=== PATIENT | male | born 2000 | race Caucasian/White ===

== ENCOUNTER 2024-10-10 18:07 | Emergency (ER) | payer OTHER, SELFPAY ==
[2024-10-10 18:14] VITALS: BP 150/74; PULSE 94; RESP 18; TEMP 37; O2SAT 98; BMI 41.6
--- NOTE | 2024-10-10 18:20 | ED_ITS ---
HPI - General Adult General Chief complaint: Skin/Abscess/Foreign Body Stated complaint: rash on arms and feet; swollen feet Time Seen by Provider: 10/10/24 22:58 Source: patient Mode of arrival: ambulatory Limitations: no limitations History of Present Illness ED Provider: Dr. Alondra Moreno HPI narrative: 24-year-old male with no significant past medical history presenting with continued rash on his lower extremities that is now spread to his upper extremities and abdomen that has been ongoing for over a month. Patient was seen at another emergency department about a month ago for the same reason. States that he was given a cream of medication that helped the rash someone but reports that it is only getting worse. Admits that the rash is very itchy and he has even had some open excoriated areas because of it. No reported fever. Rash is not painful. No upper respiratory symptoms. Denies associated chest pain or difficulty breathing. No abdominal pain or vomiting. Has been otherwise healthy. He is sexually active with a single female partner and has never had a diagnosis of STDs. Reports that he was checked for syphilis during his last emergency department visit. He has not seen a furniture sales consultant about this. He does not have a primary care doctor. Related Data Previous Rx's ?Medication ?Instructions ?Recorded cetirizine 10 mg capsule (Zyrtec) 10 mg PO DAILY PRN i tching #60 caps 10/11/24 prednisone 10 mg tablets in a dose 10 mg PO DIRECTE D #48 ea 10/11/24 pack Allergies Allergy/AdvReac Type Severity Reaction Status Date / Time No Known Allergies Allergy Verified 10/10/24 18:15 Review of Systems 2 Review of Systems: as per HPI, full review of systems performed and negative but for the above mentioned pertinent positives and negatives. [facility] Social History Social History Advance Directives: No Advance Directives Information Provided: No Physical Exam ED Exam Exam: GENERAL: Well-Appearing, conversant, no acute distress. SKIN: Normal skin color for ethnicity, warm, dry, diffuse, maculopapular red, almost purpuric rash that is raised in areas in a plaque-like configuration with confluence in some areas spanning from the feet including the soles, to the abdomen also including the arms but spares the palms, see pictures below. HEENT:? Normocephalic, atraumatic, no stridor, posterior oropharynx nonerythematous, dentition intact, EOMI. NECK: Soft, supple, full ROM, midline structures nontender, no step-offs, no deformities, no lymphadenopathy. CHEST: Heart regular rate and rhythm, no murmurs, symmetric chest rise and fall. PULMONARY: Clear to auscultation bilaterally, no labored breathing, no wheezes/rhales/rhonchi. ABDOMINAL: Soft, nondistended, nontender, positive bowel sounds in all quadrants. : Deferred. MUSCULOSKELETAL: Normal tone, full range of motion, no deformities, no peripheral edema. NEURO: Alert and oriented x3, CN II through XII intact, equal strength and sensation bilateral upper and lower extremities, no focal neurologic deficits.? PSYCHIATRIC: Normal affect, fluid speech, good eye contact and appropriate demeanor. Vital Signs: Vital Signs - 24 hr 10/10/24 18:14 10/10/24 23:21 Temperature 98.6 F 98.5 F Pulse Rate 94 65 Respiratory Rate 18 16 Blood Pressure 150/74 H 116/63 Pulse Oximetry 98 96 Oxygen Delivery Method Room Air Room Air BMI result Body Mass Index 41.6 Skin Other: Course Course Course Narrative: This is a Rapid Medical Examination (RME) performed by Michael Fortune PA-C in triage. Full HPI, ROS, assessment and treatment plan per primary provider in the Main ED. Hx: 24 yo M here for eval of diffuse body rash. seen at [facility] prior, diagnosed w/ bacterial skin infection . prescribed abx and cream. seemed to go away, has now returned. rash to b/l UE, LEs, soles, trunk. states he is sexually active with female partners. he does not recall if he was tested for STIs at [facility]. Plan: labs, UA, CTNG, syphillis testing Medications Administered Discontinued Medications Generic Name Dose Route Start Last Admin Trade Name Freq PRN Reason Stop Dose Admin Loratadine 10 mg 10/11/24 00:57 10/11/24 01:18 Loratadine 10 Mg Tablet PO 10/11/24 00:58 10 mg ONCE ONE Administration Prednisone 60 mg 10/11/24 00:52 10/11/24 01:18 Prednisone 20 Mg Tablet PO 10/11/24 00:53 60 mg ONCE ONE Administration Medical Decision Making Medical Decision Making [facility] Narrative: Patient presents today with chief complaint of rash. Differential diagnosis is broad. I considered diagnoses including all rashes that might represent some type of emergent pathology. The patient specifically does not have evidence of vesicles, blistering, petechiae or purpura, involvement of the palms, soles or mucous membranes. There has not been any introduction of new medications. Vital signs are normal. Systemically very well- appearing. Rash consistent with potential vasculitis. I discussed the importance of follow-up with Dermatology to have a biopsy to diagnose this definitively. The patient is very poor to follow-up and I was actually the doctor that saw him at the other emergency department and prescribed him hydrocortisone cream for the rash. At that time he also had an overlying cellulitis and 1 of his feet which has since resolved after a course of antibiotics. He has no overlying cellulitic changes today. He does have multiple areas of excoriation and an ulcer on his foot that is not currently infected. I am going to treat him with oral steroids and provide him with a furniture sales consultant to follow up with. Using shared decision making, plan for discharge home to follow-up with primary care and/or specialist. Patient understands and agrees with plan for discharge. Discharged home in stable condition. Differential Diagnosis Differential Diagnoses: The differential diagnosis associated with the presentation includes (as above) Admission/Observation Consideration of admission/observation: Escalation of care including admission/observation considered Lab Data [facility] Lab Attestation statement: I reviewed the patient's lab results. 10/10/24 18:56 10/10/24 18:56 Labs: Lab Results 10/10/24 Range/Units 18:56 WBC 10.4 (4.8-10.8) X10*3/uL RBC 4.82 (4.60-5.80) X10*6/uL Hgb 14.3 (14.0-18.0) g/dl Hct 41.7 L (42.0-52.0) % MCV 86.5 (80.0-98.0) fL MCH 29.7 (27.0-33.0) pg MCHC 34.3 (31.0-36.0) g/dl RDW 12.2 (11.0-16.0) % Plt Count 313 (160-400) X10*3/uL MPV 11.2 (9.4-12.4) fL Immature Gran % (Auto) 0.3 (0.0-0.4) % Neut % (Auto) 54.0 (45-73) % Lymph % (Auto) 33.3 (20-40) % Menard % (Auto) 7.1 (2-11) % Eos % (Auto) 4.4 H (0-4) % Baso % (Auto) 0.9 (0-2) % Lymph # (Auto) 3.5 (1.2-4.9) X10*3/uL Menard # (Auto) 0.7 (0.1-1.2) X10*3/uL Eos # (Auto) 0.5 H (0.0-0.4) X10*3/uL Baso # (Auto) 0.1 (0.0-0.2) X10*3/uL Abs Immat Gran (auto) 0.03 (0.00-0.03) X10*3/uL Absolute Neuts (auto) 5.6 (2.0-8.3) x10*3/uL Absolute Nucleated RBC 0.000 (0.0-0.012) X10*3/uL Nucleated RBC % (auto) 0.0 (0.0-0.2) /100WBC ESR 14 (0-15) MM/HR Sodium 141 (135-145) mmol/L Potassium 3.6 (3.3-5.1) mmol/L Chloride 107 (96-108) mmol/L Carbon Dioxide 26 (22-29) mmol/L Anion Gap 12 (12-20) BUN 13 (9-16) mg/dL Creatinine 1.10 (0.5-1.4) mg/dL Estim Creat Clear Calc 130.4 Estimated GFR > 60 Random Glucose 94 (60-115) mg/dL Calcium 9.3 (8.4-10.2) mg/dL Magnesium 1.9 (1.6-2.6) mg/dL Total Bilirubin 0.4 (0.0-1.0) mg/dL AST 32 (5-37) U/L ALT 35 (0-40) U/L Alkaline Phosphatase 80 (39-117) U/L C-Reactive Protein 0.59 H (< or = 0.50) mg/dL Total Protein 8.1 H (6.5-8.0) g/dL Albumin 4.8 (3.5-5.0) g/dL Ur N gonorrhoeae DNA (PCR) NOT DETECTED (Not Detect.) T.pallidum Ab (EIA) Nonreactive (Nonreactive) Ur Chlamydia DNA (PCR) NOT DETECTED (Not Detect.) Independent Historian Clinical information obtained from an independent historian. History obtained from or confirmed by: Spouse External Record Review External record reviewed: Outside ED record Prescription Management I considered prescription management with: Other (steriods) Discharge Plan Discharge Clinical Impression: Vasculitis limited to skin Patient Disposition: Home, Self-Care Instructions: Acute Rash (ED), Purpura (ED) Additional Instructions: Take your prednisone (steroids) every day until the Dosepak is completed. Follow-up with the furniture sales consultant as soon as possible to get a definitive diagnosis regarding this rash. If you notice any redness that tracks away from your skin, or if you develop a fever, you should return to the emergency department immediately. Prescriptions: New prednisone 10 mg tablets,dose pack 10 mg PO DIRECTED Qty: 48 0RF Rx Instructions: see taper instructions Zyrtec 10 mg capsule 10 mg PO DAILY PRN (Reason: itching) Qty: 60 0RF Referrals: [facility] [Outside] Clinical Impression: Vasculitis limited to skin Interventions: ED Discharge Assessment Last Done: 10/11/24 01:24 Discharge Date/Time: 10/11/24 01:24 Print Language: Tamazight
[2024-10-10 19:01] LABS: MANUAL DIFF FLAG NO
[2024-10-10 19:03] LABS: Hematocrit 41.7 % (42.0-52.0); Hemoglobin 14.3 g/dl (14.0-18.0); Imm Gran Abs Auto 0.03 X10*3/uL (0.00-0.03); Imm Gran Pct Auto 0.3 % (0.0-0.4); Lymphocytes Absolute Auto 3.5 X10*3/uL (1.2-4.9); Mean Corpuscular HGB Conc 34.3 g/dl (31.0-36.0); Mean Corpuscular Hemoglobin 29.7 pg (27.0-33.0); Mean Corpuscular Volume 86.5 fL (80.0-98.0); NRBC Abs Auto 0.000 X10*3/uL (0.0-0.012); NRBC Pct Auto 0.0 /100WBC (0.0-0.2); Platelet Count 313 X10*3/uL (160-400); Red Blood Count 4.82 X10*6/uL (4.60-5.80); White Blood Count 10.4 X10*3/uL (4.8-10.8)
[2024-10-10 19:16] LABS: Alanine Aminotransferase 35 U/L (0-40); Albumin Level 4.8 g/dL (3.5-5.0); Alkaline Phosphatase 80 U/L (39-117); Anion Gap 12 (12-20); Aspartate Amino Transferase 32 U/L (5-37); Blood Urea Nitrogen 13 mg/dL (9-16); Calcium 9.3 mg/dL (8.4-10.2); Carbon Dioxide 26 mmol/L (22-29); Chloride 107 mmol/L (96-108); Creatinine Clr Calc Pharmacy 130.4; Estimated Glomerular Filt Rate > 60; Magnesium 1.9 mg/dL (1.6-2.6); Potassium 3.6 mmol/L (3.3-5.1); Sodium 141 mmol/L (135-145); Total Protein 8.1 g/dL (6.5-8.0)
[2024-10-10 22:04] LABS: CT PCR Urine NOT DETECTED (Not Detect.); NG PCR Urine NOT DETECTED (Not Detect.)
[2024-10-10 23:21] VITALS: BP 116/63; PULSE 65; RESP 16; TEMP 36.9; O2SAT 96
[2024-10-11 01:24] VITALS: BP 116/63; PULSE 65; RESP 16; TEMP 36.9; O2SAT 96
[2024-10-11 08:20] LABS: Syphilis Screen Nonreactive (Nonreactive)
== END 2024-10-11 01:24 | disposition home or self-care (01) ==
PROVIDERS: Physician Assistant Medical; Emergency Provider Emergency Medicine
DX: L95.9 Vasculitis limited to the skin, unspecified (principal); R21 Rash and other nonspecific skin eruption
CPT/HCPCS: 36415; 80053; 83735; 85025; 85652; 86140; 86780; 87491; 87591; 99283